=== PATIENT | female | born 1960 | race Caucasian/White ===

== ENCOUNTER 2018-07-30 09:27 | Emergency (ER) | payer BC ==
[2018-07-30 09:54] VITALS: TEMP 97.5; BMI 20.9
--- NOTE | 2018-07-30 09:57 | PDOC ---
History of Present Illness - General Chief Complaint: Allergic Reaction Stated Complaint: ALLERGIC REACTION Time Seen by Provider: 07/30/18 09:49 History Source: Patient Exam Limitations: No Limitations - History of Present Illness Initial Comments: 07/30/18 09:57 HPI The patient is a 58-year-old female, with a past medical history of HTN, HLD, glaucoma, anxiety, who presents to the ED with RT-sided facial and lip swelling that began at 5AM this morning when she woke up, s/p taking lisinopril last night. The patients BP was high yesterday and she reports taking a dose of lisinopril, which she has only taken once before and she hasnt been compliant with for a few months now. She denies having any adverse reactions then. She denies any throat swelling, tongue swelling, difficulty swallowing, chest pain, or difficulty breathing; no rashes noted. The patient went to Urgent Care at 9AM and was given IV solumedrol and advised to report to the ED for further evaluation. The patients symptoms have improved since taking the steroids and she reports that she is now able to speak normally. On exam, she reports feeling very anxious and diaphoretic. The patient takes xanax at home when needed, but has not taken any today. The patient denies any fevers, chills, nausea, vomiting, diarrhea, or abdominal pain. Denies any numbness, tingling, or weakness of the extremities. Denies any urinary symptoms. Allergies: tylenol/vicodin and now lisinopril allergy Surgical History: Tubal ligation, LT wrist surgery, Foot surgery. Social History: None reported. No tobacco or etoh or illicit drug use. Meds: as documented in EMR PCP: Dr. Melanie oCrtez Review of systems Constitutional: no fevers or chills. HEENT: no headache or dizziness. No congestion. No visual/hearing disturbances. no eye pain/discharge, no sore throat or difficulty swallowing. no neck pain. + lip and facial swelling CVS: no cp or syncope. Resp: no sob. No cough. no wheezing. Gastrointestinal: no abdominal pain, nausea or vomiting. Genitourinary: no urinary sx, hematuria. MUSCULOSKELETAL: No joint pain and swelling. No neck or back pain. SKIN: no redness or skin changes, no discharge, no rash. No wounds. Hematologic: no easy bruising/bleeding. NEUROLOGIC: No headache, dizziness, LOC or altered mental status. No weakness, numbness or tingling. Psych: no anxiety or depression Allergic/Immunologic: +drug allergies. All other systems reviewed and negative, or as documented in HPI. Physical exam: General: Well appearing, awake and alert, NAD. +anxious. NCAT, PERRL, EOMI, clear conjunctiva, anicteric, moist mucus membranes, clear oropharynx. Airway patent, normal phonation. Uvula midline. lower facial prominent on right >left, mild lip swelling - nonpitting. no rash. Neck: neck supple, FROM Resp: CTAB, normal and even respirations, no respiratory distress., no wheezing. CVS: RRR, no murmurs, 2+ peripheral pulses throughout, no peripheral edema Abdomen: soft, NTND, no peritoneal signs. Back: nontender, normal inspection and ROM MSK: no peripheral edema, GUERRA x4, ROM intact. No clubbing or cyanosis. normal bulk and tone. Neuro: alert, no focal neuro deficits. CN II-XII grossly intact, speech clear. Psych: +anxious, jittery. Skin: warm and well perfused, cap refill <2 sec, normal color; no rash. 07/30/18 10:26 07/30/18 11:03 Past History - Past Medical History Allergies/Adverse Reactions: Allergies Allergy/AdvReac Type Severity Reaction Status Date / Time acetaminophen [From Vicodin] Allergy Verified 07/30/18 09:48 hydrocodone [From Vicodin] Allergy Verified 07/30/18 09:48 lisinopril Allergy Swelling Verified 07/30/18 09:48 Home Medications: Ambulatory Orders Atorvastatin Ca [Lipitor] 10 mg PO HS 07/30/18 Lisinopril 10 mg PO DAILY 07/30/18 Multivitamins [Tab-A-Vit -] 1 tab PO DAILY 07/30/18 Omeprazole Magnesium [Prilosec Otc] 20 mg PO DAILY 07/30/18 COPD: No HTN: Yes Hypercholesterolemia: Yes Psychiatric Problems: Yes (panic attacks) - Suicide/Smoking/Psychosocial Hx Smoking History: Never smoked Have you smoked in the past 12 months: No Information on smoking cessation initiated: No Hx Alcohol Use: Yes Drug/Substance Use Hx: No *Physical Exam - Vital Signs Last Vital Signs Temp Pulse Resp BP Pulse Ox 97.5 F L 66 18 108/73 97 07/30/18 09:48 07/30/18 09:48 07/30/18 09:48 07/30/18 09:48 07/30/18 09:48 Medical Decision Making - Medical Decision Making 07/30/18 09:57 I, Sera Reyes MD, attest that this document has been prepared under my direction and personally reviewed by me in its entirety. I further attest, that it accurately reflects all work, treatment, procedures and medical decision -making performed by me. DDx. allergic reaction: hypersensitivity reaction, allergic reaction, anaphylaxis, hives/urticaria. drug rash. dermatitis. serum sickness. vasculitis. medication side effect. - pt assessed on initial presentation, Airway intact, breathing well and no distress. +mild angioedema, but improving per patient s/p solumedrol [employer] at urgent care. mild anxiolysis with xanax with improvement. - ambulatory in dept, NAD, eating yogurt. - observed in the ED x 4 hours, monitoring for recurrence -No fevers or systemic findings, clinically well appearing. no mucosal involvement so doubt SJS/TEN. airway patent, doubt anaphylaxis or Dress syndrome. - No evidence of erythema multiforme, SJS/TEN, Lyme, infection or airway obstruction. - given steroids [employer], PO benadryl, - no allergic sx.. VS wnl, stable, no hypotension. swelling improved, not present on reexamination after 4 hours. - instructions on avoiding triggers including lisinopril, precautions of recurrence or severe symptoms. - no clear literature or evidence for steroids/antihistamines in angioedema 2/2 bradykinin mediation; continue to monitor sx over the next 2-3 days, return precautions provided included recurrence, airway involvement, respiratory distress.. etc. called out to Dr Cortez, primary doctor, made aware and discharge plan, will see her tomorrow and will make note of allergic rxn and avoidance of future DA/ARB. upon discharge eval, patient looks well, nontoxic and is tolerating oral intake ; no neurologic signs or symptoms; no headache or photophobia or neck pain; no ev of sepsis or airway obstruction; appropriate for initial o/p tx; d/w pt importance of f/u and pt agrees/understands; told pt to return to nearest ER immediately for any worsening sx incl but not limited to: fever, spreading rash , pain, sore throat, headache, dizziness, chest pain, trouble breathing, or any ssx concerning to the patient. I did d/w pt the aforementioned ddx as possibilities and pt understands to f/u even if better and to return to ER if un -changed/worse. Pt understands these instructions on d/c and is comfortable with discharge plan. 07/30/18 13:51 *DC/Admit/Observation/Transfer Diagnosis at time of Disposition: Angioedema, Medication side effect - Discharge Dispostion Disposition: HOME Condition at time of disposition: Good Decision to Admit order: No - Referrals Referrals: Melanie Cortez MD [Primary Care Provider] - - Patient Instructions Printed Discharge Instructions: DI for Angioedema, DI for Adverse Drug Reaction -- Allergic Additional Instructions: - instructions on avoiding triggers including lisinopril, precautions of recurrence or severe symptoms such as but not limited to the following: fever, spreading rash, pain, sore throat, headache, dizziness, chest pain, trouble breathing, respiratory distress, inability to tolerate by mouth, tongue or lip or facial swelling. there is a chance this angioedema can recur in the next several days or weeks, so monitor very closely - no clear literature or evidence for steroids/antihistamines in angioedema 2/2 bradykinin mediation; continue to monitor sx over the next 2-3 days, return precautions provided included recurrence, airway involvement, respiratory distress.. as above. - you can take benadryl every 6-8 hours if allergic symptoms recur; no benefit to epinephrine or steroids, so will avoid for now please follow up with Dr Cortez in the next several days for referrals and clinical reevaluation. you can see her in the office tomorrow 11AM - call to confirm - Post Discharge Activity
[2018-07-30] MEDS ORDERED: diphenhydrAMINE HCL 25 MG CAPSULE (FP) PO ONE ×2 (10:32→10:36)
[2018-07-30] MEDS ORDERED: ALPRAZolam 0.25 MG TABLET PO ONE (10:32)
[2018-07-30] MEDS ORDERED: ALPRAZolam 0.25 MG TABLET ONE (10:36)
[2018-07-30 14:21] VITALS: BP 111/84; PULSE 100
== END 2018-07-30 14:21 | disposition home or self-care (01) ==
LOC: JER 09:27 → SUPCPDRO 09:27 → JER 14:21
DX: T78.3XXA Angioneurotic edema, initial encounter (principal); T65.91XA Toxic effect of unspecified substance, accidental (unintentional), initial encounter; Y92.89 Other specified places as the place of occurrence of the external cause; I10 Essential (primary) hypertension; E78.00 Pure hypercholesterolemia, unspecified; F41.0 Panic disorder [episodic paroxysmal anxiety]; E78.5 Hyperlipidemia, unspecified; H40.9 Unspecified glaucoma
CPT/HCPCS: 99283-25

== ENCOUNTER 2020-09-15 05:26 | Day surgery (SDC) | payer BC ==
[2020-09-13 17:07] VITALS: BMI 17.4
[2020-09-15] MEDS ORDERED: CIPROFLOXACIN 0.3% EYE DROPS 5 ML BOTTLE ONE (06:17)
[2020-09-15] MEDS: TROPICAMIDE 1% OPHTH SOLN 15 ML BOTTLE ONE ×3 (06:45→07:10)
[2020-09-15] MEDS: CIPROFLOXACIN HCL 0.3% OPHTH 2.5ML BOTTLE OP SCH ×2 (06:45→07:10)
[2020-09-15] MEDS: DICLOFENAC SODIUM 0.1% OPHTHALMIC 2.5ML BOTTLE ONE ×3 (06:45→07:10)
[2020-09-15] MEDS: PHENYLEPHRINE 2.5% OPHTH SOLN 15 ML BOTTLE OP SCH ×2 (07:00→07:10)
[2020-09-15] MEDS ORDERED: TOBRAMYCIN/DEXAMETHASONE OPHTH. OINTMENT 1 TUBE ONE (07:05)
[2020-09-15] MEDS ORDERED: LIDOCAINE HCL/PF 1% SDV 5ML VIAL ONE (07:05)
[2020-09-15] MEDS ORDERED: TETRACAINE 0.5% OPHTH SOLN 2 ML BOTTLE ONE (07:05)
[2020-09-15] MEDS ORDERED: EPINEPHrine/PF 1 MG/1 ML (1:1,000) AMPULE ONE (07:05)
[2020-09-15] MEDS ORDERED: POVIDONE-IODINE 5% OPHTHALMIC PREP 30 ML SOLUTION ONE (07:06)
[2020-09-15] MEDS ORDERED: BSS (NA/CA/MG/K) BALANCED SALT SOLUTION OPHTH SOLN 15 ML BOTTLE ONE (07:06)
[2020-09-15] MEDS ORDERED: KETOROLAC TROMETHAMINE 0.5% EYE DROP 1 DROP DROPS OP SCH (07:30)
[2020-09-15] MEDS ORDERED: TROPICAMIDE 1% OPHTH SOLN 15 ML BOTTLE OP SCH (07:30)
[2020-09-15] MEDS ORDERED: LIDOCAINE HCL 2% (50ML VIAL) NR ONE ×2 (07:32→07:55)
[2020-09-15] MEDS ORDERED: MIDAZOLAM HCL 2 MG/2 ML SINGLE DOSE VIAL ONE ×2 (07:33)
[2020-09-15] MEDS ORDERED: PROPOFOL 20 ML ONE ×3 (07:33→08:27)
[2020-09-15] MEDS ORDERED: LIDOCAINE HCL/PF 2% SDV 5ML VIAL ONE ×3 (07:34→07:51)
[2020-09-15] MEDS ORDERED: BUPIVACAINE HCL/PF 0.75% 10 ML VIAL ONE (07:34)
[2020-09-15] MEDS ORDERED: SUCCINYLCHOLINE CHLORIDE 200 MG/10 ML SYRINGE ONE (07:36)
[2020-09-15] MEDS ORDERED: BUPIVACAINE HCL/PF 0.75% 10 ML VIAL NR ONE ×2 (07:38→07:55)
[2020-09-15] MEDS ORDERED: LIDOCAINE 1% P/F 10 MG/ML VIAL INF ONE ×2 (07:47→08:03)
[2020-09-15] MEDS ORDERED: POVIDONE-IODINE 5% OPHTHALMIC PREP 30 ML SOLUTION OD ONE ×2 (07:47→08:00)
[2020-09-15] MEDS ORDERED: GLYCOPYRROLATE 0.2 MG/1 ML VIAL ONE (07:51)
[2020-09-15] MEDS ORDERED: DEXAMETHASONE SOD PHOSPHATE 4 MG/1 ML VIAL ONE (07:51)
[2020-09-15] MEDS ORDERED: ACETAMINOPHEN 325 MG TABLET (FP) PO PRN (07:52)
[2020-09-15] MEDS ORDERED: ONDANSETRON 4 MG/2 ML VIAL IVPUSH PRN (07:52)
[2020-09-15] MEDS ORDERED: TETRACAINE 0.5% OPHTH SOLN 2 ML BOTTLE OD ONE (07:59)
[2020-09-15] MEDS ORDERED: LACTATED RINGERS SOLUTION 1,000 ML IV SCH (08:00)
[2020-09-15] MEDS ORDERED: BSS (NA/CA/MG/K) BALANCED SALT SOLUTION OPHTH SOLN 15 ML BOTTLE OD ONE (08:03)
[2020-09-15] MEDS ORDERED: CHONDROITIN SU A/HYALUR SOD 1 KIT IO ONE (08:06)
[2020-09-15] MEDS ORDERED: EPINEPHrine/PF 1 MG/1 ML (1:1,000) AMPULE SQ ONE ×2 (08:07→08:09)
[2020-09-15] MEDS ORDERED: TOBRAMYCIN 0.3% OPHTH OINT 3.5 GM OD ONE (08:22)
[2020-09-15 11:35] VITALS: TEMP 97.8
[2020-09-15 11:38] VITALS: BP 120/88; PULSE 88
== END 2020-09-15 10:00 | disposition home or self-care (01) ==
LOC: JASU-SURG 05:26
PROVIDERS: ATTEND Ophthalmology
PROC: 08RJ3JZ Replacement of Right Lens with Synthetic Substitute, Percutaneous Approach (ICD-10-PCS; principal; 2020-09-15 07:30)
DX: H26.9 Unspecified cataract (principal)

== ENCOUNTER 2020-10-13 04:22 | Day surgery (SDC) | payer BC ==
[2020-10-11 17:09] VITALS: BMI 18.3
[~2020-10-13 04:22] MED LIST: BSS (NA/CA/MG/K) BALANCED SALT SOLUTION OPHTH SOLN 15 ML BOTTLE OS ONE; BUPIVACAINE HCL/PF 0.75% 10 ML VIAL NR ONE; CHONDROITIN SU A/HYALUR SOD 1 KIT IO ONE; EPINEPHrine/PF 1 MG/1 ML (1:1,000) AMPULE SQ ONE; LIDOCAINE HCL 1% PRESERVATIVE FREE - 30ML VIAL IO ONE; LIDOCAINE HCL/PF 2% SDV 5ML VIAL INF ONE; POVIDONE-IODINE 5% OPHTHALMIC PREP 30 ML SOLUTION OS ONE; TOBRAMYCIN/DEXAMETHASONE OPHTH. OINTMENT 1 TUBE OS ONE
[2020-10-13] MEDS ORDERED: TOBRAMYCIN/DEXAMETHASONE OPHTH. OINTMENT 1 TUBE ONE (07:14)
[2020-10-13] MEDS ORDERED: EPINEPHrine/PF 1 MG/1 ML (1:1,000) AMPULE ONE (07:15)
[2020-10-13] MEDS ORDERED: BSS (NA/CA/MG/K) BALANCED SALT SOLUTION OPHTH SOLN 15 ML BOTTLE ONE (07:15)
[2020-10-13] MEDS ORDERED: TETRACAINE 0.5% OPHTH SOLN 2 ML BOTTLE ONE (07:15)
[2020-10-13] MEDS ORDERED: POVIDONE-IODINE 5% OPHTHALMIC PREP 30 ML SOLUTION ONE (07:15)
[2020-10-13] MEDS ORDERED: LIDOCAINE HCL/PF 1% SDV 5ML VIAL ONE (07:15)
[2020-10-13] MEDS ORDERED: ACETAMINOPHEN 325 MG TABLET (FP) PO PRN (07:22)
[2020-10-13] MEDS ORDERED: TROPICAMIDE 1% OPHTH SOLN 15 ML BOTTLE OP SCH (07:30)
[2020-10-13] MEDS ORDERED: CIPROFLOXACIN HCL 0.3% OPHTH 2.5ML BOTTLE OP SCH (07:30)
[2020-10-13] MEDS ORDERED: KETOROLAC TROMETHAMINE 0.5% EYE DROP 1 DROP DROPS OP SCH (07:30)
[2020-10-13] MEDS ORDERED: PHENYLEPHRINE 2.5% OPHTH SOLN 15 ML BOTTLE OP SCH (07:30)
[2020-10-13] MEDS ORDERED: CIPROFLOXACIN 0.3% EYE DROPS 5 ML BOTTLE ONE (07:38)
[2020-10-13] MEDS ORDERED: KETOROLAC TROMETHAMINE 0.5% EYE DROP 1 DROP DROPS ONE (07:38)
[2020-10-13] MEDS ORDERED: TROPICAMIDE 1% OPHTH SOLN 15 ML BOTTLE ONE (07:38)
[2020-10-13] MEDS ORDERED: KETOROLAC TROMETHAMINE 0.5% EYE DROP 1 DROP DROPS OS ONE ×3 (08:15→08:35)
[2020-10-13] MEDS ORDERED: CIPROFLOXACIN HCL 0.3% OPHTH 2.5ML BOTTLE OS ONE ×2 (08:15→08:25)
[2020-10-13] MEDS ORDERED: TROPICAMIDE 1% OPHTH SOLN 15 ML BOTTLE OS ONE ×3 (08:15→08:35)
[2020-10-13] MEDS ORDERED: PHENYLEPHRINE 2.5% OPHTH SOLN 15 ML BOTTLE OS ONE ×3 (08:15→08:35)
[2020-10-13] MEDS ORDERED: MIDAZOLAM HCL 2 MG/2 ML SINGLE DOSE VIAL ONE ×3 (08:25→09:35)
[2020-10-13] MEDS ORDERED: CIPROFLOXACIN 0.3% EYE DROPS 5 ML BOTTLE OS ONE (08:35)
[2020-10-13] MEDS ORDERED: LIDOCAINE HCL/PF 2% SDV 5ML VIAL INF ONE (09:36)
[2020-10-13] MEDS ORDERED: BUPIVACAINE HCL/PF 0.75% 10 ML VIAL NR ONE (09:36)
[2020-10-13] MEDS ORDERED: POVIDONE-IODINE 5% OPHTHALMIC PREP 30 ML SOLUTION OS ONE (09:38)
[2020-10-13] MEDS ORDERED: PROPOFOL 20 ML ONE (09:41)
[2020-10-13] MEDS ORDERED: BSS (NA/CA/MG/K) BALANCED SALT SOLUTION OPHTH SOLN 15 ML BOTTLE OS ONE (09:44)
[2020-10-13] MEDS ORDERED: CHONDROITIN SU A/HYALUR SOD 1 KIT IO ONE (09:47)
[2020-10-13] MEDS ORDERED: EPINEPHrine/PF 1 MG/1 ML (1:1,000) AMPULE SQ ONE (09:56)
[2020-10-13] MEDS ORDERED: TOBRAMYCIN/DEXAMETHASONE OPHTH. OINTMENT 1 TUBE OS ONE (10:08)
[2020-10-13] MEDS ORDERED: ONDANSETRON 4 MG/2 ML VIAL IVPUSH PRN (10:22)
[2020-10-13] MEDS ORDERED: TRYPAN BLUE 0.5 ML DISP.SYRIN ONE (10:27)
[2020-10-13] MEDS ORDERED: LACTATED RINGERS SOLUTION 1,000 ML IV SCH (10:30)
[2020-10-13 11:36] VITALS: BP 114/88; PULSE 100; TEMP 98.1
== END 2020-10-13 11:20 | disposition home or self-care (01) ==
LOC: JASU-SURG 04:22
PROVIDERS: ATTEND Ophthalmology
PROC: 08RK3JZ Replacement of Left Lens with Synthetic Substitute, Percutaneous Approach (ICD-10-PCS; principal; 2020-10-13 09:30)
DX: H25.042 Posterior subcapsular polar age-related cataract, left eye (principal); H21.89 Other specified disorders of iris and ciliary body
CPT/HCPCS: 66982; V2631